=== PATIENT | female | born 1995 | race Caucasian/White ===

== ENCOUNTER 2017-11-04 13:35 | Observation (INO) | payer OTHER ==
[2017-11-04 13:56] VITALS: BP 116/56
[2017-11-04] MEDS ORDERED: PREN1TAB80 PO (13:56)
[2017-11-04] MEDS ORDERED: RINGERS SOLUTION,LACTATED 1,000 ML IV SCH (15:45)
[2017-11-04] MEDS ORDERED: CeFAZolin 1 GM/DEXTROSE 50 ML IV ONE (15:45)
[2017-11-04 20:42] LABS: APPEARANCE,URINE CLOUDY (CLEAR); BILIRUBIN,URINE NEGATIVE (NEGATIVE); GLUCOSE, URINE (UA) NEGATIVE (NEGATIVE); KETONES,URINE NEGATIVE (NEGATIVE); LEUKOCYTE ESTERASE ,URINE LARGE (NEGATIVE); NITRATE,URINE NEGATIVE (NEGATIVE); OCCULT BLOOD,URINE MODERATE (NEGATIVE); PROTEIN,URINE NEGATIVE (NEGATIVE); UROBILINOGEN,URINE 0.2 mg/dL (<=1.0)
[2017-11-04 21:52] LABS: BACTERIA,URINE Many /HPF (None Seen)
[2017-11-04 21:53] LABS: SQUAMOUS EPITHELIAL CELL,UR Many /LPF (None Seen)
== END 2017-11-04 17:45 | disposition home or self-care (01) ==
LOC: 4S 13:35
PROVIDERS: ADMIT Obstetrics & Gynecology; ATTEND Obstetrics & Gynecology
DX: O46.92 Antepartum hemorrhage, unspecified, second trimester (principal); O26.892 Other specified pregnancy related conditions, second trimester; R10.30 Lower abdominal pain, unspecified; Z3A.27 27 weeks gestation of pregnancy
CPT/HCPCS: 59025; 76811; 81001; 87077; 87086; 87186; 96361; 96365; G0378; J0690; J7120; 96360

== ENCOUNTER 2017-11-06 00:37 | Observation (INO) | payer OTHER ==
[~2017-11-06] VITALS: Ht 154.9 cm; Wt 62.6 kg
[~2017-11-06 00:37] MED LIST: PREN1TAB80 PO
[2017-11-06 00:45] VITALS: BP 113/65
== END 2017-11-06 01:40 | disposition home or self-care (01) ==
LOC: 4S 00:37
PROVIDERS: ADMIT Obstetrics & Gynecology; ATTEND Obstetrics & Gynecology
DX: O26.892 Other specified pregnancy related conditions, second trimester (principal); R10.33 Periumbilical pain; R10.30 Lower abdominal pain, unspecified; Z3A.27 27 weeks gestation of pregnancy
CPT/HCPCS: 59025; G0378

== ENCOUNTER 2018-01-12 13:20 | Observation (INO) | payer OTHER ==
[~2018-01-12] VITALS: Ht 157.5 cm; Wt 69.9 kg
[2018-01-12 14:18] VITALS: BP 126/67
== END 2018-01-12 15:40 | disposition home or self-care (01) ==
LOC: 4S 13:20
PROVIDERS: ADMIT Obstetrics & Gynecology; ATTEND Obstetrics & Gynecology
DX: O62.9 Abnormality of forces of labor, unspecified (principal); O26.893 Other specified pregnancy related conditions, third trimester; R10.9 Unspecified abdominal pain; M54.9 Dorsalgia, unspecified; Z3A.37 37 weeks gestation of pregnancy
CPT/HCPCS: 59025; G0378